=== PATIENT | male | born 1985 | race Caucasian/White ===

== ENCOUNTER 2018-06-05 02:38 | Emergency (ER) | payer OTHER ==
[~2018-06-05] VITALS: Ht 157.4 cm; Wt 59.9 kg
[~2018-06-05 02:38] MED LIST: AMOXICILLIN,AM250 MG PO; AMOXICILLIN500 M2 PO; AMOXICILLIN500 MG PO; AMOXIL500 MG PO; ANTIVERT/2525 MG PO; AUGMENTIN 875875 MG PO; CYCLOBENZAPRINE10 MG PO; FLEXERIL5 MG PO; FLONASE 0.05% 121 EA NAS; FLONASE ALLERG9.9 ML NS; MEDROL DOSEPAK4 MG PO; MOBIC7.5 MG PO; MOTRIN400 MG PO; NAPROSYN500 MG PO; NKHM; NKHM PO; NORFLEX100 MG PO; PREDNICOT20 MG PO; PREDNISONE20 MG PO; TAMIFLU75 MG PO; TESSALON PERLE100 M1 PO; TRAMADOL HCL50 MG PO; VIBRAMYCIN100 MG PO; ZITHROMAX250 MG PO; ZOFRAN ODT4 MG SL; ZYRTEC10 M2 PO; ZYRTEC10 MG PO
[2018-06-05] MEDS ORDERED: AUGMENTIN 875-875 MG PO (03:01)
== END 2018-06-05 03:19 | disposition home or self-care (01) ==
LOC: ED 02:38
DX: H66.93 Otitis media, unspecified, bilateral (principal); J02.9 Acute pharyngitis, unspecified

== ENCOUNTER 2018-06-30 02:50 | Emergency (ER) | payer OTHER ==
[~2018-06-30] VITALS: Ht 157.4 cm; Wt 59.9 kg
[~2018-06-30 02:50] MED LIST changes: +AUGMENTIN 875-875 MG PO
[2018-06-30] MEDS ORDERED: AMOXICILLIN500 M2 PO (03:01)
== END 2018-06-30 03:31 | disposition home or self-care (01) ==
LOC: ED 02:50
DX: H66.91 Otitis media, unspecified, right ear (principal); R05 Cough; Z79.899 Other long term (current) drug therapy; Z79.2 Long term (current) use of antibiotics

== ENCOUNTER → 2018-11-12 | Outpatient (CLI) | payer BC ==
[2018-11-12 11:49] LABS: BASO % 0.6 % (0.0-1.0); EOS # 0.1 10*3/uL (0.0-0.4); EOS % 2.1 % (1.0-4.0); HEMATOCRIT 43.8 % (42.0-52.0); HEMOGLOBIN 14.3 g/dl (14.0-18.0); LYMPH # 1.6 10*3/uL (1.3-4.4); LYMPH % 24.7 % (27.0-41.0); MEAN CELL VOLUME 85.7 fl (80.0-94.0); MEAN CORPUSCULAR HGB CONC 32.6 g/dl (33.0-37.0); MEAN PLATELET VOLUME 9.4 fl (9.6-12.3); MONO # 0.6 10*3/uL (0.1-1.0); MONO % 8.4 % (3.0-9.0); NEUT # 4.2 10*3/uL (2.3-7.9); PLATELET COUNT AUTOMATED 223 10*3/uL (130-400); RED BLOOD COUNT 5.11 10*6/uL (4.50-5.90); WHITE BLOOD COUNT 6.6 10*3/uL (4.8-10.8)
[2018-11-12 12:18] LABS: ALBUMIN 3.7 gm/dl (3.1-4.5); BUN 13 mg/dl (7-24); CHLORIDE 106 mmol/L (98-107); CHOLESTEROL 193 mg/dL (<200); CREATININE 0.87 mg/dL (0.70-1.30); SGOT/AST 16 IU/L (3-35); SGPT/ALT 9 U/L (12-78); SODIUM 140 mmol/L (136-145)
[2018-11-12 12:28] LABS: ALKALINE PHOSPHATASE 95 U/L (45-117); HDL CHOLESTEROL 39 mg/dl (40-60); LDL CHOLESTEROL 136 mg/dL (9-159); TOTAL PROTEIN 7.4 gm/dL (6.4-8.2); TRIGLYCERIDES 88 mg/dl (<150); VLDL CHOLESTEROL 18 mg/dL (6-40)
== END | disposition home or self-care (01) ==
LOC: LAB 11:22
PROVIDERS: Family Medicine
DX: K12.1 Other forms of stomatitis (principal); R53.82 Chronic fatigue, unspecified

== ENCOUNTER → 2020-01-31 | Outpatient (CLI) | payer BC | END | disposition home or self-care (01) | LOC: COVID19 12:13 | PROVIDERS: ATTEND Internal Medicine | DX: Z20.828 Contact with and (suspected) exposure to other viral communicable diseases (principal) ==

== ENCOUNTER 2020-11-16 15:59 | Emergency (ER) | payer BC ==
[~2020-11-16] VITALS: Ht 157.4 cm; Wt 60.8 kg
== END 2020-11-16 20:07 | disposition home or self-care (01) ==
LOC: ED 15:59
DX: U07.1 COVID-19 (principal)

== ENCOUNTER 2023-01-10 04:37 | Emergency (ER) | payer BC ==
[~2023-01-10] VITALS: Wt 62.1 kg
[2023-01-10] MEDS ORDERED: VIBRAMYCIN100 MG PO (05:26)
== END 2023-01-10 05:30 | disposition home or self-care (01) ==
LOC: ED 04:37
DX: Z48.03 Encounter for change or removal of drains (principal); Z98.890 Other specified postprocedural states